=== PATIENT | female | born 1975 | race Caucasian/White ===

== ENCOUNTER → 2017-01-27 | Outpatient (CLI) | payer OTHER ==
--- NOTE | 2017-01-27 09:34 | REPMRS ---
Patient History The patient states she has not had a clinical breast exam in over a year. Family history of breast cancer in maternal aunt at age 50 or over and endometrial cancer in maternal aunt at age 50 or over. Digital Mammo Screening Bilat: January 27, 2017 - Exam #: [id number] Bilateral CC and MLO view(s) were taken. Technologist: Felicia Sanz, Technologist Prior study comparison: August 05, 2014, bilateral digital mammo screening bilat performed at [facility]. FINDINGS: The breast tissue is heterogeneously dense. This may lower the sensitivity of mammography. This mammogram was interpreted with the aid of an FDA-approved computer-aided dectection system. A. Negative x-ray reports should not delay biopsy if a dominant or clinically suspicious mass is present. B. Not all cancers are identified by mammography. C. Adenosis and dense breast may obscure an underlying neoplasm. No significant changes when compared with prior studies. ASSESSMENT: BI-RADS/ACR category 1 mammogram. Negative. Recommendation Routine screening mammogram in 1 year. Electronically Signed By: Will Grewal M.D. 01/27/17 0934
== END ==
LOC: M RAD 08:49
PROVIDERS: ATTEND Physician Assistant
DX: Z12.31 Encounter for screening mammogram for malignant neoplasm of breast (principal)

== ENCOUNTER → 2019-06-04 | Outpatient (CLI) | payer OTHER ==
--- NOTE | 2019-06-04 09:42 | REPMRS ---
Patient History The patient states she has not had a clinical breast exam in over a year. Family history of breast cancer at age 50 or over in maternal aunt, endometrial cancer at age 50 or over in maternal aunt. Digital Woman Screen Mammo: June 04, 2019 - Exam #: [id number] Bilateral CC and MLO view(s) were taken. Technologist: Leslie Choudhury, Technologist Prior study comparison: January 27, 2017, bilateral digital mammo screening bilat, performed at [facility]. August 05, 2014, bilateral digital mammo screening bilat, performed at [facility]. FINDINGS: There are scattered fibroglandular densities. There has been no change in the appearance of the mammogram from the prior studies. There is a mild amount of scattered fibroglandular density which is fairly symmetric. There is no interval development of dominant mass, architectural distortion, or grouped microcalcification suggestive of malignancy. Assessment: BI-RADS/ACR category 1 mammogram. Negative Mammogram. Recommendation Routine screening mammogram of both breasts in 1 year (for women over age 40). This patient's Lifetime Breast Cancer Risk is estimated at 13.3 %. This mammogram was interpreted with the aid of an FDA-approved computer-aided dectection system. Electronically Signed By: Kwesi Ramon MD 06/04/19 0942
== END ==
LOC: M WHC 07:15
PROVIDERS: ATTEND Emergency Medicine
DX: Z12.31 Encounter for screening mammogram for malignant neoplasm of breast (principal)

== ENCOUNTER → 2021-02-02 | Outpatient (CLI) | payer OTHER ==
--- NOTE | 2021-02-02 11:06 | REPMRS ---
Patient History The patient states she has not had a clinical breast exam in over a year. Family history of breast cancer at age 50 or over in maternal aunt, endometrial cancer at age 50 or over in maternal aunt. No Hormone Replacement Therapy Tomosynthesis is performed. Volpara breast density is a. [facility] lifetime risk of breast cancer 13.8%. Patient states no breast complaints today. Patient has signed MRS History Sheet. Digital Woman Screen Mammo: February 02, 2021 - Exam #: [id number] Bilateral CC and MLO view(s) were taken. Technologist: Lucy Sweet Wreath Inspector Prior study comparison: June 04, 2019, bilateral digital woman screen mammo performed at [facility]. January 27, 2017, bilateral digital mammo screening bilat, performed at [facility]. FINDINGS: There are scattered fibroglandular densities. There has been no change in the appearance of the mammogram from the prior studies. There is a mild amount of residual fibroglandular tissue which is fairly symmetric. There is no interval development of dominant mass, architectural distortion, or clustered microcalcification suggestive of malignancy. Assessment: BI-RADS/ACR category 1 mammogram. Negative Mammogram. Recommendation Routine screening mammogram in 1 year (for women over age 40). This mammogram was interpreted with the aid of an FDA-approved computer-aided dectection system. Electronically Signed By: Will Maciel MD 02/02/21 8844
== END ==
LOC: M WHC 09:46
PROVIDERS: ATTEND Emergency Medicine
DX: Z12.31 Encounter for screening mammogram for malignant neoplasm of breast (principal); Z80.3 Family history of malignant neoplasm of breast; Z80.49 Family history of malignant neoplasm of other genital organs

== ENCOUNTER → 2022-04-14 | Outpatient (CLI) | payer OTHER | LOC: M WHC 12:28 | PROVIDERS: ATTEND Family Medicine | DX: Z12.31 Encounter for screening mammogram for malignant neoplasm of breast (principal) ==

== ENCOUNTER → 2023-05-05 | Outpatient (CLI) | payer OTHER | LOC: M WHC 12:31 | PROVIDERS: ATTEND Nurse Practitioner Family | DX: Z12.31 Encounter for screening mammogram for malignant neoplasm of breast (principal) ==

== ENCOUNTER → 2024-05-10 | Outpatient (CLI) | payer OTHER | LOC: M WHC 07:32 | PROVIDERS: ATTEND Nurse Practitioner Family | DX: Z12.31 Encounter for screening mammogram for malignant neoplasm of breast (principal) ==